=== PATIENT | male | born 1970 | race Caucasian/White ===

== ENCOUNTER 2017-06-27 18:11 | Emergency (ER) | payer OTHER, MEDICAID ==
[~2017-06-27] VITALS: Ht 172.7 cm; Wt 72.6 kg
[~2017-06-27 18:11] MED LIST: ALLERGEN EAR DR15 M1 OT; AMOXICILLIN 50500 MG PO; BACTRIM DS TAB1 EACH PO; BACTROBAN22 GM TP; CIPRO500 MG PO; CORTISPORIN OTI10 M2 OT; CORTISPORIN OTI10 ML OTIC; DOXYCYCLINE 10100 MG PO; FLOXIN OTI0.3 %/5 M1 OT; KEFLEX500 MG PO; NAPROSYN500 MG PO; NOHOMEMEDICATIONS; NORCO 5-325 TA1 EACH PO; TYLENOL325 MG PO; ULTRAM 50MG TAB50 MG PO; ZOFRAN ODT4 MG PO; ZPAK PO
[2017-06-27] MEDS ORDERED: FLEXERIL PO (20:49)
[2017-06-27] MEDS ORDERED: IBUPROFEN 800800 M1 PO (20:49)
[2017-06-27 21:02] VITALS: BP 116/80
== END 2017-06-27 21:03 ==
LOC: M.ERS 18:11
DX: S16.1XXA Strain of muscle, fascia and tendon at neck level, initial encounter (principal); S76.012A Strain of muscle, fascia and tendon of left hip, initial encounter; S20.212A Contusion of left front wall of thorax, initial encounter; S50.02XA Contusion of left elbow, initial encounter; S63.697A Other sprain of left little finger, initial encounter; F17.210 Nicotine dependence, cigarettes, uncomplicated; V87.8XXA Person injured in other specified noncollision transport accidents involving motor vehicle (traffic), initial encounter; Y93.89 Activity, other specified; Y92.89 Other specified places as the place of occurrence of the external cause; Y99.8 Other external cause status

== ENCOUNTER 2017-08-18 12:19 | Emergency (ER) | payer OTHER, MEDICAID ==
[~2017-08-18] VITALS: Ht 177.8 cm; Wt 74.8 kg
[~2017-08-18 12:19] MED LIST changes: +FLEXERIL PO; +IBUPROFEN 800800 M1 PO
[2017-08-18 13:15] LABS: ABSOLUTE EOSINOPHILS 0.2 thou/uL (0.0-0.7); ABSOLUTE LYMPHOCYTES 1.4 thou/uL (0.8-5.3); ABSOLUTE MONOCYTES 0.7 thou/uL (0.0-1.2); ABSOLUTE NEUTROPHILS 5.6 thou/uL (1.6-8.1); BASOPHILS 0.5 %; EOSINOPHILS 2.1 %; HEMATOCRIT 46.2 % (42.0-52.0); HEMOGLOBIN 15.7 gm/dL (14.0-18.0); LYMPHOCYTES 17.8 %; MCH 31.9 pg (26.0-34.0); MCV 93.9 fL (80.0-100.0); MONOCYTES 8.8 %; MPV 8.4 fl. (7.2-11.1); NUCLEATED RBCS 0 /100WBC; PLATELET COUNT* 232 thou/uL (150-400); POLYS 70.8 %; RBC 4.92 mil/uL (4.50-6.00); RDW-CV 14.5 % (10.5-14.5); WBC 7.9 thou/uL (4.0-11.0)
[2017-08-18 13:25] LABS: ANION GAP 11 mmol/L (7-16); BUN 8 mg/dL (7-18); CALCIUM 8.7 mg/dL (8.5-10.1); CHLORIDE 105 mmol/L (98-107); CO2 25 mmol/L (21-32); GLUCOSE 103 mg/dL (70-99); POTASSIUM 3.7 mmol/L (3.5-5.1); SODIUM 141 mmol/L (136-145)
[2017-08-18 13:32] LABS: ALBUMIN 3.5 g/dL (3.4-5.0); ALKALINE PHOSPHATASE 63 U/L (46-116); LIPASE 56 U/L (73-393); SGOT 15 U/L (15-37); SGPT 25 U/L (30-65); TOTAL BILIRUBIN 0.4 mg/dL (<0.1-1.0); TOTAL PROTEIN 6.6 g/dL (6.4-8.2); TROPONIN-I LEVEL <0.06 ng/mL (<0.06)
[2017-08-18 14:10] LABS: AMP/METHAMP POSITIVE (Negative); BARBITURATES Negative (Negative); BENZODIAZEPINES Negative (Negative); COCAINE Negative (Negative); METHADONE Negative (Negative); OPIATES Negative (Negative); PCP Negative (Negative); THC POSITIVE (Negative)
[2017-08-18 15:16] VITALS: BP 131/100
[2017-08-18] MEDS ORDERED: PRILOSEC 20 MG20 MG PO (15:16)
[2017-08-18] MEDS ORDERED: CARAFATE 1 GM TA1 GM PO (15:16)
--- NOTE | 2017-08-19 17:49 | EKG ---
[place] [address] ELECTROCARDIOGRAM REPORT Name: HELENA RAUSCH Room: [facility]#: [id number] Admission: 08/18/17 Attend Phys: Discharge: 08/18/17 Date of : 70 Report #: [id number] THIS REPORT FOR: //name// [facility] ED Test Date: 2017-08-18 Test Time: 12:23:46 Pat Name: HELENA RAUSCH Department: Room: Gender: [employer]otype Fab[employer]ator: Cristhian FIGUEROA : 1970 Requested By: Lilibeth Espinosa Order Number: [id number] MD: Tashi Mauro Measurements Intervals Combs Rate: 79 P: 9 MS: 155 QRS: 8 QRSD: 91 T: 30 QT: 393 QTc: 451 Interpretive Statements Sinus rhythm No previous ECG available for comparison Electronically Signed On 08-19-2017 17:48:45 CDT by Tashi Mauro [email or web address] <ELECTRONICALLY SIGNED> By: Tashi Mauro MD, [facility] 08/19/17 1748 1223 1223 Tashi Mauro MD, FACC /EPI
== END 2017-08-18 15:24 | disposition home or self-care (01) ==
LOC: M.ERS 12:19
PROVIDERS: Personal Emergency Response Attendant
DX: K29.60 Other gastritis without bleeding (principal); K21.9 Gastro-esophageal reflux disease without esophagitis; F19.10 Other psychoactive substance abuse, uncomplicated; F17.210 Nicotine dependence, cigarettes, uncomplicated

== ENCOUNTER 2018-08-04 07:06 | Emergency (ER) | payer OTHER, MEDICAID ==
[~2018-08-04] VITALS: Ht 172.7 cm; Wt 72.6 kg
[~2018-08-04 07:06] MED LIST changes: +CARAFATE 1 GM TA1 GM PO; +PRILOSEC 20 MG20 MG PO
[2018-08-04] MEDS ORDERED: DELTASONE20 MG PO (07:49)
[2018-08-04] MEDS ORDERED: ELIMITE60 GM TOP (07:49)
[2018-08-04 08:00] VITALS: BP 130/80
== END 2018-08-04 08:00 | disposition home or self-care (01) ==
LOC: M.ERS 07:06
DX: R21 Rash and other nonspecific skin eruption (principal); F31.9 Bipolar disorder, unspecified; F17.210 Nicotine dependence, cigarettes, uncomplicated

== ENCOUNTER 2021-01-10 10:03 | Emergency (ER) | payer OTHER, MEDICAID ==
[~2021-01-10] VITALS: Ht 172.7 cm; Wt 70.3 kg
[~2021-01-10 10:03] MED LIST changes: +DELTASONE20 MG PO; +ELIMITE60 GM TOP
[2021-01-10] MEDS ORDERED: ZOFRAN ODT4 MG PO (10:35)
[2021-01-10] MEDS ORDERED: AMOXICILLIN 50500 MG PO (10:35)
[2021-01-10] MEDS ORDERED: EAR WAX DROPS15 ML OTIC (10:35)
[2021-01-10] MEDS ORDERED: TRANSDERM-SCOP1 EACH TRANSDERM (10:35)
[2021-01-10 10:45] VITALS: BP 108/77
== END 2021-01-10 10:46 | disposition home or self-care (01) ==
LOC: M.ERS 10:03
DX: H61.22 Impacted cerumen, left ear (principal); R59.0 Localized enlarged lymph nodes; R42 Dizziness and giddiness; R11.10 Vomiting, unspecified; F31.9 Bipolar disorder, unspecified

== ENCOUNTER 2021-05-15 10:02 | Emergency (ER) | payer OTHER, MEDICAID ==
[~2021-05-15] VITALS: Ht 172.7 cm; Wt 68.0 kg
[~2021-05-15 10:02] MED LIST changes: +EAR WAX DROPS15 ML OTIC; +TRANSDERM-SCOP1 EACH TRANSDERM
[2021-05-15] MEDS ORDERED: DEPAKOTE ER250 MG PO (10:39)
[2021-05-15] MEDS ORDERED: ABILIFY10 MG PO (10:39)
[2021-05-15 11:51] LABS: ABSOLUTE EOSINOPHILS 0.1 thou/uL (0.0-0.7); ABSOLUTE LYMPHOCYTES 0.7 thou/uL (0.8-5.3); ABSOLUTE MONOCYTES 0.4 thou/uL (0.0-1.2); ABSOLUTE NEUTROPHILS 3.9 thou/uL (1.6-8.1); BASOPHILS 0.4 %; EOSINOPHILS 1.9 %; HEMATOCRIT 34.5 % (42.0-52.0); HEMOGLOBIN 12.2 gm/dL (14.0-18.0); MCH 43.9 pg (26.0-34.0); MCHC 35.4 g/dL (28.0-37.0); MCV 123.9 fL (80.0-100.0); MONOCYTES 8.5 %; MPV 7.8 fl. (7.2-11.1); NUCLEATED RBCS 0 /100WBC; PLATELET COUNT* 191 thou/uL (150-400); POLYS 76.2 %; RBC 2.79 mil/uL (4.50-6.00); RDW-CV 16.7 % (10.5-14.5); WBC 5.1 thou/uL (4.0-11.0)
[2021-05-15 12:07] LABS: ALBUMIN 2.5 g/dL (3.4-5.0); CREATININE 1.1 mg/dL (0.6-1.3); TOTAL BILIRUBIN 2.4 mg/dL (<0.1-1.0); TOTAL PROTEIN 5.9 g/dL (6.4-8.2)
[2021-05-15 12:08] LABS: POTASSIUM 2.7 mmol/L (3.5-5.1)
[2021-05-15] MEDS ORDERED: IBUPROFEN 800800 MG PO (12:57)
[2021-05-15 13:05] VITALS: BP 107/85
== END 2021-05-15 13:06 | disposition home or self-care (01) ==
LOC: M.ERS 10:02
PROVIDERS: Family Medicine
DX: M54.2 Cervicalgia (principal); F10.10 Alcohol abuse, uncomplicated; E87.6 Hypokalemia; H92.02 Otalgia, left ear; R11.2 Nausea with vomiting, unspecified; R22.1 Localized swelling, mass and lump, neck; R06.02 Shortness of breath; F31.9 Bipolar disorder, unspecified; F17.210 Nicotine dependence, cigarettes, uncomplicated; Z98.890 Other specified postprocedural states; Z79.899 Other long term (current) drug therapy